=== PATIENT | female | born 1975 ===

== ENCOUNTER 2021-07-26 06:41 | Day surgery (SDC) | payer OTHER ==
[2021-07-26] MEDS ORDERED: NEXIUM 24HR20 MG PO (10:16)
[2021-07-26] MEDS ORDERED: CARAFATE1 GM/10 ML PO (10:17)
== END 2021-07-26 11:55 | disposition home or self-care (01) ==
LOC: AMB-ENDOS 06:41
PROVIDERS: ATTEND Surgery
DX: D13.1 Benign neoplasm of stomach (principal); K44.9 Diaphragmatic hernia without obstruction or gangrene; Z20.822 Contact with and (suspected) exposure to COVID-19